=== PATIENT | male | born 1950 | race Caucasian/White ===

== ENCOUNTER 2020-02-19 08:47 | Outpatient (CLI) | payer MEDICARE, SELFPAY ==
[2020-02-19 09:17] LABS: Basophils Absolute Auto 0.1 K/mm3 (0.0-0.1); Basophils Percent Auto 1.5 % (0.2-1.2); Eosinophils Absolute Auto 0.4 K/mm3 (0-0.3); Eosinophils Percent Auto 5.8 % (0-4.4); Hematocrit 41.8 % (42.0-52.0); Hemoglobin 13.9 g/dL (14.0-18.0); Immature Granulocyte Absolute 0.02 K/mm3 (0.00-0.031); Immature Granulocyte Percent A 0.3 % (0-0.5); Lymphocytes Absolute Auto 1.98 K/mm3 (0.9-3.2); Mean Corpuscular HGB Conc 33.3 g/dl (32-36); Mean Corpuscular Hemoglobin 29.8 pg (26-34); Mean Corpuscular Volume 89.7 fl (80-100); Mean Platelet Volume 10.8 fl (7.4-10.4); Monocytes Absolute Auto 0.6 K/mm3 (0.1-0.6); Monocytes Percent Auto 8.9 % (2.6-8.5); Neutrophils Absolute Auto 3.2 K/mm3 (1.3-6.7); Neutrophils Percent Auto 51.5 % (45.5-73.1); Platelet Count Result 254 k/mm3 (150-375); Red Blood Count 4.66 M/mm3 (4.6-6.20); Red Cell Distribution Width 12.2 % (11.5-14.5); White Blood Count 6.2 K/mm3 (4.5-10.0)
[2020-02-19 09:33] LABS: Blood Urea Nitrogen 19 mg/dL (9-20); Calcium 9.5 mg/dL (8.4-10.2); Carbon Dioxide 28 mmol/L (22-30); Chloride 102 mmol/L (98-107); Estimated Glomerular Filt Rate > 60; Glucose 228 mg/dL (75-110); Potassium 4.7 mmol/L (3.4-5.0); Sodium 137 mmol/L (137-145)
== END 2020-02-19 08:48 | disposition home or self-care (01) ==
LOC: ANHLAB 08:57
PROVIDERS: PCP Family Medicine; Visit Provider Family Medicine
DX: I10 Essential (primary) hypertension (principal); D64.9 Anemia, unspecified
CPT/HCPCS: 36415; 80048; 84443; 85025

== ENCOUNTER 2020-06-18 18:38 | Inpatient (IN) | payer MEDICARE, SELFPAY ==
--- NOTE | ~2020-06-18 | US_ITS ---
EXAMINATION: US carotid duplex BI DATE: 06/19/2020 12:54 INDICATION: Syncope. TECHNIQUE: Grayscale, color Doppler, and pulsed Doppler images of the cervical carotid arteries were obtained. The degree of vessel stenosis is placed in one of the following categories: normal, <50%, 5 0-69%, >=70% but less than near-occlusion, near-occlusion, or total occlusion. Note that percent sten osis relative to normal distal artery lumen diameter is indirectly measured from velocity measurement s as described by Kenny, et al. Radiology 2003; 229:340-346. COMPARISON: Ultrasound 05/21/2019 FINDINGS: RIGHT: The right common carotid artery (CCA) peak systolic velocity (PSV) is 109 cm/s. The right internal ca rotid artery (ICA) PSV is 101 cm/s. The right ICA end-diastolic velocity (EDV) is 16 cm/s. The right ICA/CCA PSV ratio is 0.9. Grayscale and color Doppler images yield an estimate of <50% diameter reduc tion from plaque in the ICA. There is antegrade flow in the right vertebral artery. LEFT: The left CCA PSV is 114 cm/s. The left ICA PSV is 110 cm/s. The left ICA EDV is 15 cm/s. The left ICA /CCA PSV ratio is 0.9. Grayscale and color Doppler images yield an estimate of <50% diameter reductio n from plaque in the ICA. There is antegrade flow in the left vertebral artery. IMPRESSION: 1. <50% stenosis in the right internal carotid artery. 2. <50% stenosis in the left internal carotid artery. Reviewed, dictated and finalized at location A.
--- NOTE | ~2020-06-18 | CT_ITS ---
EXAMINATION: CT brain wo con EXAM DATE: 06/18/2020 19:45 INDICATION: Syncope, struck head, head injury. Left parietal head pain. TECHNIQUE: Spiral CT of the head was performed without contrast. Axial, coronal and sagittal images were reviewed. The dose-length product (DLP) for this examination was 605.33 mGy-cm. The exposure w as tailored according to patient size, and iterative reconstruction (ASIR) was used as additional dos e reduction technique. Comparison is made to prior examination from 06/06/2007. FINDINGS: There is no acute intraparenchymal hemorrhage. No evidence of intraparenchymal brain mass lesion. No evidence of acute infarction. There is no mass effect or midline shift. The ventricles are normal in size. There are no extra-axial collections. There are no acute calvarial fractures. T he orbits are unremarkable. There is small left posterior scalp contusion. Moderate bilateral ethmoi d mucoperiosteal thickening. Completely opacified right sphenoid sinus probably chronic given the sin us wall thickening. The mastoid air cells demonstrate trace left mastoid effusion. IMPRESSION: 1. No acute intracranial findings. 2. Small posterior scalp contusion. Reviewed, dictated and finalized at location A.
--- NOTE | ~2020-06-18 | MR_ITS ---
EXAMINATION: MR brain/brain stem wo/w con DATE: 06/19/2020 12:39 INDICATION: Dizziness. Ataxia. Syncope. TECHNIQUE: Magnetic resonance imaging (MRI) of the brain and brainstem was performed without and with 20 mL MultiHance intravenous contrast. Sequences included sagittal and axial T1-weighted FSE, axial diffusion-weighted FS EPI, axial T2*-weighted GRE, axial T2-weighted FLAIR Propeller, and axial T2-we ighted Propeller. Postcontrast sequences included axial and coronal T1-weighted FSE. Apparent diffusi on coefficient (ADC) maps were created. COMPARISON: Head CT 06/18/2020, 06/06/2007 FINDINGS: There are scattered areas of nonspecific increased T2-weighted signal intensity in the cere bral white matter, which is within normal limits for the patient's age. There is no intracranial hemo rrhage, acute infarction, or abnormal intracranial mass lesion. The ventricles are normal in size. Th ere is mucosal thickening in the paranasal sinuses. There is complete opacification of right sphenoid sinus. There is a small left mastoid effusion. The orbits are normal. IMPRESSION: 1. Normal aging brain. 2. Chronic sinusitis. Reviewed, dictated and finalized at location A.
[2020-06-18 18:45] VITALS: BP 174/75; PULSE 54; RESP 18; TEMP 37.4; O2SAT 99
--- NOTE | 2020-06-18 18:51 | ECG_ITS ---
Measurements Intervals [place] Rate: 51 P: -22 VT: 169 QRS: -22 QRSD: 89 T: -19 QT: 381 QTc: 351 Interpretive Statements SINUS BRADYCARDIA BORDERLINE ST-T WAVE ABNORMALITY- INFERIOR LEADS BASELINE ARTIFACT- I, III, AVL BORDERLINE ECG Electronically Signed On 06-19-2020 7:34:39 CDT by Garo Valdivia D.O.
[2020-06-18 19:05] LABS: Basophils Absolute Auto 0.1 K/mm3 (0.0-0.1); Basophils Percent Auto 1.1 % (0.2-1.2); Eosinophils Absolute Auto 0.5 K/mm3 (0-0.3); Eosinophils Percent Auto 4.5 % (0-4.4); Hematocrit 41.6 % (42.0-52.0); Hemoglobin 13.8 g/dL (14.0-18.0); Immature Granulocyte Absolute 0.09 K/mm3 (0.00-0.031); Immature Granulocyte Percent A 0.8 % (0-0.5); Lymphocytes Absolute Auto 2.87 K/mm3 (0.9-3.2); Mean Corpuscular HGB Conc 33.2 g/dl (32-36); Mean Corpuscular Hemoglobin 29.6 pg (26-34); Mean Corpuscular Volume 89.3 fl (80-100); Mean Platelet Volume 11.4 fl (7.4-10.4); Monocytes Absolute Auto 1.2 K/mm3 (0.1-0.6); Monocytes Percent Auto 10.9 % (2.6-8.5); Neutrophils Absolute Auto 5.9 K/mm3 (1.3-6.7); Neutrophils Percent Auto 55.7 % (45.5-73.1); Platelet Count Result 264 k/mm3 (150-375); Red Blood Count 4.66 M/mm3 (4.6-6.20); Red Cell Distribution Width 12.6 % (11.5-14.5); White Blood Count 10.6 K/mm3 (4.5-10.0)
[2020-06-18 19:16] LABS: Anion Gap 9 mmol/L (8-16); Blood Urea Nitrogen 22 mg/dL (9-20); Calcium 9.3 mg/dL (8.4-10.2); Carbon Dioxide 25 mmol/L (22-30); Chloride 105 mmol/L (98-107); Estimated Glomerular Filt Rate 55; Glucose 133 mg/dL (75-110); Potassium 4.5 mmol/L (3.4-5.0); Sodium 139 mmol/L (137-145)
[2020-06-18 20:33] VITALS: BP 175/83; PULSE 68
[2020-06-18 20:39] VITALS: BP 189/89; BP 198/67; PULSE 61; PULSE 63
--- NOTE | 2020-06-18 21:08 | ED.SYNCOPE ---
HPI - Syncope General Chief Complaint: Syncope Stated Complaint: syncopal episode, fall Time Seen by Provider: 06/18/20 20:31 History of Present Illness HPI narrative: Patient is a 70-year-old male who presents ER after syncopal episode 3 hours prior to arrival. Patient was in the kitchen normal suddenly he collapsed. Patient has dementia and is history is because I limited. Does not report any chest pain or palpitations. Reports he was eating some food of a pop when he got dizzy and this occurred. heard him hit the ground he did not respond to her. She believes she is unresponsive for about 1 minute. Since then he has had some instability when walking due to dizziness. No slurred speech or weakness in arm or leg. Has not had similar symptoms previously. Patient reports a headache due to striking his head on the ground. Related Data Allergies Allergy/AdvReac Type Severity Reaction Status Date / Time No Known Allergies Allergy Verified 06/14/20 13:27 Review of Systems Review of Systems: ROS unobtainable: Yes unobtainable due to mental status Neurologic: Reports dizziness, Reports syncope, Reports headache(s) and Denies numbness PMFSH Past Medical History Medical History (Updated 06/18/20 @ 23:26 by Etienne Hernandez MD) Anemia, unspecified Diabetes Essential (primary) hypertension Kidney function abnormal REY (obstructive sleep apnea) Surgical History Surgical History (Updated 06/18/20 @ 21:12 by Etienne Hernandez MD) H/O colonoscopy Social History Social History Smoking status: Never smoker Alcohol intake: current Exam Narrative: Exam Narrative: GENERAL: Well-appearing, well-nourished, and in no acute distress. HEAD: Normocephalic, atraumatic. EYES: PERRLA and EOMI. CHEST: Clear to auscultation. No respiratory distress. HEART: Regular rate and rhythm. Normal peripheral pulses. ABDOMEN: Soft, nontender, nondistended. EXTREMITIES: Normal range of motion. No edema. SKIN: Warm, dry, no rash. NEURO: Cranial nerves II through XII intact. No upper or lower extremity drift. Patient has ataxic gait when walking and nearly falls over couple times. Alert and oriented x2. PSYCH: Normal mood and affect. Course Course Emergency Course: Admit to hospitalist service. Concern for possible posterior stroke given ataxia. Will need MRI and further work-up. Vital Signs Vital signs: Vital Signs Temperature 99.4 F 06/18/20 18:45 Pulse Rate 54 L 06/18/20 18:45 Respiratory Rate 18 06/18/20 18:45 Blood Pressure 174/75 H 06/18/20 18:45 Pulse Oximetry 99 06/18/20 18:45 Temperature 99.4 F 06/18/20 18:45 Pulse Rate 47 L 06/18/20 23:09 Respiratory Rate 18 06/18/20 23:09 Blood Pressure 152/74 H 06/18/20 23:09 Pulse Oximetry 97 06/18/20 23:09 MDM - Syncope Lab Data Result diagrams: 06/18/20 18:53 06/18/20 18:53 Labs: Lab Results 06/18/20 06/18/20 Range/Units 18:53 18:53 WBC 10.6 H (4.5-10.0) K/mm3 RBC 4.66 (4.6-6.20) M/mm3 Hgb 13.8 L (14.0-18.0) g/dL Hct 41.6 L (42.0-52.0) % MCV 89.3 (80-100) fl MCH 29.6 (26-34) pg MCHC 33.2 (32-36) g/dl RDW 12.6 (11.5-14.5) % Plt Count 264 (150-375) k/mm3 MPV 11.4 H (7.4-10.4) fl Immature Gran % (Auto) 0.8 H (0-0.5) % Neut % (Auto) 55.7 (45.5-73.1) % Lymph % (Auto) 27.0 (18.3-44.2) % [place] % (Auto) 10.9 H (2.6-8.5) % Eos % (Auto) 4.5 H (0-4.4) % Baso % (Auto) 1.1 (0.2-1.2) % Lymph # (Auto) 2.87 (0.9-3.2) K/mm3 [place] # (Auto) 1.2 H (0.1-0.6) K/mm3 Eos # (Auto) 0.5 H (0-0.3) K/mm3 Baso # (Auto) 0.1 (0.0-0.1) K/mm3 Abs Immat Gran (auto) 0.09 H (0.00-0.031) K/mm3 Absolute Neuts (auto) 5.9 (1.3-6.7) K/mm3 Absolute Nucleated RBC 0.0 (0.0-0.012) K/mm3 Nucleated RBC % 0.0 (0.0-0.2) % Sodium 139 (137-145) mmol/L Potassium 4.5 (3.4-5.0) mmol/L Chlor
[2020-06-18 21:35] VITALS: BP 168/62; PULSE 50; RESP 18; O2SAT 17
[2020-06-18 23:09] VITALS: BP 152/74; PULSE 47; RESP 18; O2SAT 97
[2020-06-18 23:56] VITALS: BP 156/79; PULSE 51; RESP 16; O2SAT 96
[2020-06-19] VITALS (13 sets, daily range): BP systolic 133–164; BP diastolic 55–79; PULSE 38–66; RESP 15–17; TEMP 36.6–36.8; O2SAT 95–100; BMI 29.6
--- NOTE | 2020-06-19 00:08 | ADMGEN ---
This patient, Alejandro Love, was admitted to Medical Room 344-01. Patient/family oriented to hospital policies and general routines including ID bracelet, bed and alarms, visiting hours, pain management, procedures, bathroom and other care routines, personal items, smoking policy, room service/diet, and visiting hours. Valuables list has been completed. Information on how to activate the Rapid Response Team has been discussed. Patient/Family are encouraged to report perceived risks to care and to ask questions if they do not understand what they are told or what they should do.
--- NOTE | 2020-06-19 00:34 | PM.IMHP ---
H&P: HPI History of Present Illness Date/Time: 06/19/20 00:34 Chief complaint: syncope, dizziness, ataxia Narrative: This is a pleasant 70 year old Diabetic male with known history of HTN and anemia who presented to the hospital after suffering a syncopal episode in his kitchen yesterday. Apparently the patient was cooking and remembers standing next to the stove and tasting some food he was cooking when suddenly he found himself on the floor. He did strike the back of his head and his right elbow when he fell. The patient was poorly responsive for a few minutes before his could get him to wake up and become responsive. He remembers feeling very dizzy and continues to have dizziness. He denies any chest pain or shortness of breath prior to passing out. He denies any other focal symptoms and his did not observe any seizure like activity. In the ER tonight the patient was evaluated and found to have a wide shuffling gait which is not normal for him. His reported to ER staff that the patient appeared very shaky. He denies any fevers, chills, cough, shortness of breath, abdominal pain, palpitations, dysuria, hematuria, nausea, vomiting, diarrhea or rectal bleeding. We have been asked to admit the patient for further care and r/o possible CVA. Review of Systems Review of Systems: All systems reviewed & are unremarkable except as noted in HPI and below PMFSH Past Medical History Medical History Anemia, unspecified Diabetes Essential (primary) hypertension Kidney function abnormal REY (obstructive sleep apnea) Surgical History Surgical History H/O colonoscopy Family History Family History Sibling Hypertension Diabetes mellitus Social History Social History Smoking status: Never smoker Additional smoking assessment comments: pt very poor historian Alcohol intake: never Substance use: never Substance use type: does not use Gender identity (if verbalized by the patient): Male Spiritual care concerns: No Meds Home Medications and Allergies Home Medications Medication Instructions Recorded Confirmed Type amlodipine 10 mg tablet 10 mg PO DAILY #90 tablet 03/17/20 06/19/20 Rx donepezil 10 mg tablet 10 mg PO ONCE #30 tablet 04/08/20 06/19/20 Rx ramipril 10 mg capsule 20 mg PO DAILY #60 cap 04/16/20 06/19/20 Rx omeprazole 40 mg capsule,delayed 40 mg PO DAILY #90 cap 05/26/20 06/19/20 Rx release nebivolol 10 mg tablet 10 mg PO DAILY #30 tablet 06/14/20 06/19/20 Rx metformin 500 mg PO QPM 06/19/20 06/19/20 History Allergies Allergy/AdvReac Type Severity Reaction Status Date / Time No Known Allergies Allergy Verified 06/14/20 13:27 Vital Signs Vital Signs - 24 hr 06/18/20 18:45 06/18/20 20:33 06/18/20 20:39 Temperature 37.4 C Pulse Rate 54 L 68 61 Respiratory Rate 18 Blood Pressure 174/75 H 175/83 H 198/67 H Pulse Oximetry 99 06/18/20 21:35 06/18/20 23:09 06/18/20 23:56 Temperature Pulse Rate 50 L 47 L 51 L Respiratory Rate 18 18 16 Blood Pressure 168/62 H 152/74 H 156/79 H Pulse Oximetry 17 L 97 96 06/19/20 00:30 Temperature 36.6 C Pulse Rate 48 L Respiratory Rate 16 Blood Pressure 133/79 Pulse Oximetry 97 Exam Const: General: cooperative, healthy appearing, no acute distress, alert and awake Nutritional Appearance: well nourished Orientation/consciousness: patient oriented x3 HENMT: General nose exam: Normal external nose present Face and sinus: normal facial exam Mouth: Yes Normal oral and palatal mucosa present and Yes oropharynx normal Eyes: Pupils: Equal, round and reactive pupils present EOM: EOMs intact bilaterally Neck: Neck: supple and no JVD Thyroid: thyroid normal Lymphatic: lymphadenopathy not noted Resp: Ef
[2020-06-19 07:58] LABS: Glucose Point of Care 136 (65-105)
[2020-06-19] MEDS: amLODIPine BESYLATE 5 MG TABLET 10 MG PO (09:00)
[2020-06-19] MEDS: PANTOPRAZOLE 40 MG TABLET PO ×2 (09:01→20:55)
[2020-06-19] MEDS: ramipriL 5 MG CAPSULE 20 MG PO (09:02)
[2020-06-19] MEDS: ACETAMINOPHEN 325 MG TABLET 650 MG PO (10:51)
[2020-06-19 13:15] LABS: Glucose Point of Care 131 (65-105)
--- NOTE | 2020-06-19 15:11 | PM.IMPN ---
Progress Note: A&P Assessment and Plan (1) Syncope: Qualifiers: Syncope type: unspecified Qualified Code(s): R55 - Syncope and collapse Code(s): R55 - Syncope and collapse Status: Acute Assessment and Plan: Patient presents after 1 syncopal episode at home. Still some intermittent dizziness today. May be related to sinus bradycardia. He recently saw Dr. Kidd in the office 06/14 at which time his Bystolic was doubled 5 mg daily to [address] brain, MRI brain showed no acute findings. Carotid Dopplers are within normal limits. Continue to hold Bystolic and monitor with cardiac telemetry. Continue neuro checks, check TSH in AM. (2) Ataxia: Code(s): R27.0 - Ataxia, unspecified Status: Acute Assessment and Plan: MRI brain has ruled out acute CVA. Continue PT/OT. Plan for discharge home with home health. (3) Essential (primary) hypertension: Code(s): I10 - Essential (primary) hypertension Status: Chronic Assessment and Plan: Patient remains on his home regimen including Norvasc, ASIF-inhibitor. Bystolic is held due to sinus bradycardia. IV hydralazine as needed. Monitor BP and adjust treatment as needed. (4) Diabetes: Qualifiers: Diabetes mellitus type: type 2 Diabetes mellitus residential insulin use: without termite control technician use Diabetes mellitus complication status: without complication Qualified Code(s): E11.9 - Type 2 diabetes mellitus without complications Code(s): E11.9 - Type 2 diabetes mellitus without complications Status: Chronic Assessment and Plan: Continue home metformin. Last A1c 8.6 in February, recheck in AM. Continue to monitor with Accu-Cheks and cover with SSI. Blood sugars appropriate today. (5) Dementia: Qualifiers: Dementia type: unspecified type Dementia behavioral disturbance: without behavioral disturbance Qualified Code(s): F03.90 - Unspecified dementia without behavioral disturbance Code(s): F03.90 - Unspecified dementia without behavioral disturbance Status: Chronic Assessment and Plan: Stable. Continue home Aricept. Subjective Date/time seen: 06/19/20 1445 Interval history: Mr. Love is a very pleasant 70yo M admitted for evaluation of dizziness and syncope. He passed out at home while standing in the kitchen yesterday, has been having some intermittent dizziness still today but overall feeling a bit better. He denies any headache, vision changes or speech changes. He denies upper or lower extremity weakness. He denies chest pain, shortness of breath, or cough. He has tolerated oral intake without nausea or vomiting. He is a bit hard of hearing and admits he does have dementia but answers all of my questions appropriately. Per patient's request, attempted to call his , Cynthia, for updates but not able to reach her this evening. Review of Systems Review of Systems: Narrative: Twelve systems were reviewed with pertinent positives and negatives as per HPI. Exam Narrative: Exam Narrative: General: Male resting sitting up in bed in no acute distress. HEENT: Normocephalic, EOMI, oral mucosa moist. Cardiovascular: Rate is bradycardic. Rhythm is regular. Systolic murmur heard over left sternal border. Telemetry review shows sinus bradycardia, rates as low as 38 overnight. Current HR at time of my encounter is ranging from 49 to 62 and he is asymptomatic present. Respiratory: Lungs clear to auscultation in all garcia. Non-labored breathing. Tolerating room air. Abdomen: Soft, non-tender, non-distended, bowel sounds present. Extremities: Peripheral pulses intact. No edema. Neuro: Alert and oriented. No focal neurological deficits are
[2020-06-19 16:37] LABS: Glucose Point of Care 141 (65-105)
[2020-06-19] MEDS: metFORMIN HCL XR 500 MG TAB.SR.24H PO (17:55)
[2020-06-19 18:26] LABS: Add Urine Microscopic? YES; Appearance Urine Clear (Clear); Bilirubin Urine Negative (Negative); Blood Urine Negative (Negative); Color Urine Yellow (Yellow); Glucose Urine UA Negative (Negative); Ketones Urine Negative (Negative); Leukocyte Esterase Ur Negative LEU/UL (Negative); Mucus Urine Rare /lpf; Nitrate Urine Negative (Negative); Protein Urine 1+ mg/dL (Negative); RBC Urine 0-2 /hpf (0-2); Specific Grav Ur 1.025 (1.001-1.035); Squamous Epithelial Cell Urine Rare /hpf (Few); WBC Urine 0-3 /hpf
[2020-06-19] MEDS: DONEPEZIL HCL 10 MG TABLET PO (20:55)
[2020-06-19 22:24] LABS: Glucose Point of Care 149 (65-105)
[2020-06-20] VITALS (11 sets, daily range): BP systolic 143–166; BP diastolic 62–75; PULSE 39–70; RESP 14–19; TEMP 36.6–36.7; O2SAT 97–100
[2020-06-20 06:29] LABS: Basophils Absolute Auto 0.1 K/mm3 (0.0-0.1); Basophils Percent Auto 0.9 % (0.2-1.2); Eosinophils Absolute Auto 0.5 K/mm3 (0-0.3); Eosinophils Percent Auto 6.5 % (0-4.4); Hematocrit 39.9 % (42.0-52.0); Hemoglobin 13.5 g/dL (14.0-18.0); Immature Granulocyte Absolute 0.03 K/mm3 (0.00-0.031); Immature Granulocyte Percent A 0.4 % (0-0.5); Lymphocytes Percent Auto 23.2 % (18.3-44.2); Mean Corpuscular HGB Conc 33.8 g/dl (32-36); Mean Corpuscular Hemoglobin 30.1 pg (26-34); Mean Corpuscular Volume 89.1 fl (80-100); Mean Platelet Volume 11.1 fl (7.4-10.4); Monocytes Absolute Auto 0.9 K/mm3 (0.1-0.6); Monocytes Percent Auto 10.5 % (2.6-8.5); Neutrophils Absolute Auto 4.8 K/mm3 (1.3-6.7); Neutrophils Percent Auto 58.5 % (45.5-73.1); Platelet Count Result 242 k/mm3 (150-375); Red Blood Count 4.48 M/mm3 (4.6-6.20); Red Cell Distribution Width 12.6 % (11.5-14.5); White Blood Count 8.2 K/mm3 (4.5-10.0)
[2020-06-20 07:56] LABS: Glucose Point of Care 152 (65-105)
[2020-06-20] MEDS: ramipriL 5 MG CAPSULE 20 MG PO (08:52)
[2020-06-20] MEDS: PANTOPRAZOLE 40 MG TABLET PO ×2 (08:53→20:46)
[2020-06-20] MEDS: amLODIPine BESYLATE 5 MG TABLET 10 MG PO (08:53)
--- NOTE | 2020-06-20 11:22 | PM.IMPN ---
Progress Note: A&P Assessment and Plan (1) Syncope: Qualifiers: Syncope type: unspecified Qualified Code(s): R55 - Syncope and collapse Code(s): R55 - Syncope and collapse Status: Acute Assessment and Plan: Patient presents after 1 syncopal episode at home. No dizziness today. May be related to sinus bradycardia. He recently saw Dr. Kidd in the office 06/14 at which time his Bystolic was doubled 5 mg daily to [address] brain, MRI brain showed no acute findings. Carotid Dopplers are within normal limits. Continue to hold Bystolic and monitor with cardiac telemetry. 5- beat run of nonsustained VT on telemetry early this morning. We will keep him overnight to check an echocardiogram in AM. He may benefit from evaluation with holter monitor. (2) Ataxia: Code(s): R27.0 - Ataxia, unspecified Status: Acute Assessment and Plan: MRI brain has ruled out acute CVA. Continue PT/OT. Plan for discharge home with home health possibly tomorrow. (3) Essential (primary) hypertension: Code(s): I10 - Essential (primary) hypertension Status: Chronic Assessment and Plan: Patient remains on his home regimen including Norvasc, ASIF-inhibitor. Bystolic is held due to sinus bradycardia. IV hydralazine as needed. Monitor BP and adjust treatment as needed. (4) Diabetes: Qualifiers: Diabetes mellitus type: type 2 Diabetes mellitus moth exterminator insulin use: without moth exterminator use Diabetes mellitus complication status: without complication Qualified Code(s): E11.9 - Type 2 diabetes mellitus without complications Code(s): E11.9 - Type 2 diabetes mellitus without complications Status: Chronic Assessment and Plan: Continue home metformin. Last A1c 8.6 in February, recheck in AM. Continue to monitor with Accu-Cheks and cover with SSI. Blood sugars appropriate today. (5) Dementia: Qualifiers: Dementia type: unspecified type Dementia behavioral disturbance: without behavioral disturbance Qualified Code(s): F03.90 - Unspecified dementia without behavioral disturbance Code(s): F03.90 - Unspecified dementia without behavioral disturbance Status: Chronic Assessment and Plan: Stable. Continue home Aricept. Subjective Date/time seen: 06/20/20 0915 Interval history: Mr. Love is a very pleasant 70yo M admitted for evaluation of dizziness and syncope. He passed out at home while standing in the kitchen yesterday, had some intermittent dizziness still yesterday but none so far today, even with getting up to walk and use the restroom. He denies chest pain, palpitations, shortness of breath, or cough. He has tolerated oral intake without nausea or vomiting. He is a bit hard of hearing and admits he does have dementia but answers all of my questions appropriately. 5 beat run of nonsustained VT noted on telemetry this morning. RN notified me of another 3-beat run later this morning with which he is completely asymptomatic, sitting in the chair reading. Review of Systems Review of Systems: Narrative: Twelve systems were reviewed with pertinent positives and negatives as per HPI. Exam Narrative: Exam Narrative: General: Male resting sitting up in bed in no acute distress. HEENT: Normocephalic, EOMI, oral mucosa moist. Cardiovascular: Rate is bradycardic. Rhythm is regular. Systolic murmur heard over left sternal border. Telemetry review shows sinus bradycardia, rates as low as 39 overnight. Current HR at time of my encounter is 58 and he is asymptomatic at present. 5 beat run of nonsustained VT early this morning. Respiratory: Lungs clear to auscultation in all garcia. Non-labored breathing. Tolerat
[2020-06-20 12:06] LABS: Glucose Point of Care 253 (65-105)
[2020-06-20] MEDS: INSULIN ASPART (*BKC) 100 UNITS/ML SUB-Q (12:10)
[2020-06-20 17:10] LABS: Glucose Point of Care 130 (65-105)
[2020-06-20] MEDS: metFORMIN HCL XR 500 MG TAB.SR.24H PO (17:12)
[2020-06-20 20:01] LABS: Glucose Point of Care 185 (65-105)
[2020-06-20] MEDS: DONEPEZIL HCL 10 MG TABLET PO (20:46)
[2020-06-21] VITALS (8 sets, daily range): BP systolic 169–171; BP diastolic 61–71; PULSE 43–62; RESP 12–18; TEMP 36.3–36.8; O2SAT 95–100
--- NOTE | 2020-06-21 | ECHO_ITS ---
Patient Info Name: Alejandro Love Age: 70 years : 1950 Gender: Male Ht: 75 in Wt: 236 lbs BSA: 2.40 m2 HR: 68 bpm BP: 169 / 71 mmHg Technical Quality: Good Exam Date: 06/21/2020 9:46 AM Exam Location: [facility] Patient Status: Inpatient Admit Date: 06/19/2020 Staff Ordering Physician: Caridad Ortiz PA-C Wildlife Forensic Geneticist: Heladio Henley, RASHAAD, RT Attending Provider: Alejandro Gamino MD Exam Type: CA echo dop bubble study w con Study Info Indications R55 - Syncope and collapse Complete two-dimensional, color flow and Doppler transthoracic echocardiogram is performed with agitated saline. Summary 1. Left ventricular chamber dimension is mildly enlarged. 2. Left ventricular systolic function is normal, estimated at 60-65%. 3. There is moderately increased left ventricular wall thickness. 4. The left ventricular diastolic function is abnormal. 5. E/e' 14 is mildly elevated. 6. Global longitudinal strain is normal at -20.6%. 7. There is moderate aortic valve sclerosis. 8. The mitral valve has moderately calcified annulus. 9. There is trace tricuspid valve regurgitation. 10. There is trace pulmonic regurgitation. 11. Small atheroma in anterior aortic root. 12. Dilated inferior vena cava with >50% collapse upon inspiration consistent with elevated right atrial pressure, 10 mmHg. Left Ventricle E/e' 14 is mildly elevated. Global longitudinal strain is normal at -20.6%. Left ventricular chamber dimension is mildly enlarged. Left ventricular systolic function is normal, estimated at 60-65%. There is moderately increased left ventricular wall thickness. The left ventricular diastolic function is abnormal. Right Ventricle Right ventricular chamber dimension is normal. Right ventricular systolic function is normal. Left Atria Left atrial chamber dimension is normal. Right Atria Right atrial chamber dimension is normal. Aortic Valve The aortic valve is trileaflet. There is moderate aortic valve sclerosis. There is no aortic valve stenosis. There is no aortic valve regurgitation. Pulmonic Valve There is trace pulmonic regurgitation. Mitral Valve The mitral valve has moderately calcified annulus. There is no mitral valve stenosis. There is no mitral valve regurgitation. Tricuspid Valve There is trace tricuspid valve regurgitation. RVSP is not calculated due to an inadequate TR jet. Pericardium/Pleural There is no pericardial effusion. Inferior Vena Cava Dilated inferior vena cava with >50% collapse upon inspiration consistent with elevated right atrial pressure, 10 mmHg. Aorta Small atheroma in anterior aortic root. The aortic root size at the sinus of Valsalva is normal. Left Ventricular Outflow Tract Name Value Normal LVOT 2D LVOT Diameter 2.2 cm LVOT Doppler LVOT Peak Gradient 10 mmHg LVOT Mean Gradient 5 mmHg LVOT VTI 36 cm LVOT VTI/AV VTI Ratio 0.6 LVOT Stroke Volume 139 ml LVOT CO
[2020-06-21] MEDS: ACETAMINOPHEN 325 MG TABLET 650 MG PO (05:39)
[2020-06-21 06:26] LABS: Anion Gap 5 mmol/L (8-16); Blood Urea Nitrogen 21 mg/dL (9-20); Carbon Dioxide 28 mmol/L (22-30); Chloride 103 mmol/L (98-107); Estimated CRCL calculation 73 ml/min; Estimated Glomerular Filt Rate > 60; Glucose 158 mg/dL (75-110); Magnesium 2.2 mg/dL (1.6-2.3); Potassium 4.5 mmol/L (3.4-5.0); Sodium 136 mmol/L (137-145)
[2020-06-21 07:40] LABS: Glucose Point of Care 148 (65-105)
[2020-06-21] MEDS: PANTOPRAZOLE 40 MG TABLET PO (09:06)
[2020-06-21] MEDS: ramipriL 5 MG CAPSULE 20 MG PO (09:06)
[2020-06-21] MEDS: amLODIPine BESYLATE 5 MG TABLET 10 MG PO (09:06)
[2020-06-21 11:41] LABS: Glucose Point of Care 157 (65-105)
--- NOTE | 2020-06-21 16:10 | PM.DS ---
DS: Admitting Diagnosis Admitting Diagnosis Admitting Diagnosis: syncope, dizziness, ataxia DS: Discharge Diagnosis Discharge Diagnosis (1) Syncope: Qualifiers: Syncope type: unspecified Qualified Code(s): R55 - Syncope and collapse Code(s): R55 - Syncope and collapse Status: Acute Assessment and Plan: Date of Service 06/21/20: Mr. Love is a very pleasant 70 yo M with hypertension, non-insulin dependent type 2 diabetes mellitus, and dementia who presented to the ED for evaluation after a syncopal episode/fall at home. He described he was standing in the kitchen making food when he suddenly passed out and fell to the floor. Hit the back of his head when he fell, no open laceration or bleeding. CT and MRI brain were normal. Carotid dopplers within normal limits. Denies any chest pain or shortness of breath. He is noted to have sinus bradycardia much of the admission. He was monitored with continuous cardiac telemetry, bradycardic down to 38 most of the night while sleeping. Bradycardic mostly 40s to 60s while awake. Isolated event of a 5-beat run of V-tach during which he was awake and completely asymptomatic. His home bystolic was held. He recently saw Dr Kidd in the office last week and Bystolic was doubled for blood pressure control. Patient continued with some dizziness with standing first day of admission, but was feeling much improved without any dizziness prior to discharge. Blood pressures not quite at goal after taking away the bystolic but he is feeling much improved and was educated on the importance of following up with Dr Kidd next week. Echocardiogram was performed and detailed below. He was hemodynamically stable for discharge 06/21/20 with instructions to not take his Bystolic and to see Dr Kidd within a week. Could consider outpatient cardiology referral or evaluation with Holter monitor if bradycardia persists despite being off beta blockade. (2) Ataxia: Code(s): R27.0 - Ataxia, unspecified Status: Resolved Assessment and Plan: Resolved. MRI brain has ruled out acute CVA. Continue PT/OT. Plan for discharge home with home health. (3) Essential (primary) hypertension: Code(s): I10 - Essential (primary) hypertension Status: Chronic Assessment and Plan: Patient remains on his home regimen including Norvasc, ASIF-inhibitor. Bystolic is held due to sinus bradycardia. (4) Diabetes: Qualifiers: Diabetes mellitus type: type 2 Diabetes mellitus senior care insulin use: without exterminator termite use Diabetes mellitus complication status: without complication Qualified Code(s): E11.9 - Type 2 diabetes mellitus without complications Code(s): E11.9 - Type 2 diabetes mellitus without complications Status: Chronic Assessment and Plan: Continue home metformin. Hgb A1c 8.0. (5) Dementia: Qualifiers: Dementia type: unspecified type Dementia behavioral disturbance: without behavioral disturbance Qualified Code(s): F03.90 - Unspecified dementia without behavioral disturbance Code(s): F03.90 - Unspecified dementia without behavioral disturbance Status: Chronic Assessment and Plan: Stable. Continue home Aricept. DS: Summary Time Spent with Patient Time attestation: Total time spent providing and/or coordinating discharge services: 40 minutes Exam Narrative: Exam Narrative: General: Male resting sitting up in bed in no acute distress. HEENT: Normocephalic, EOMI, oral mucosa moist. Cardiovascular: Rate is bradycardic. Rhythm is regular. Systolic murmur heard over left sternal border. Telemetry review shows sinus bradycardia, rates as low as 39 overnight. Current HR at time of
== END 2020-06-21 16:15 | disposition home health service (06) | DRG 310 ==
LOC: ANHED 21:11 → ANH3MED 23:19
PROVIDERS: Physician Assistant; Admitting Provider Family Medicine; Emergency Provider Emergency Medicine; PCP Family Medicine; Visit Provider Internal Medicine
DX: R00.1 Bradycardia, unspecified (principal); R55 Syncope and collapse; I47.2 Ventricular tachycardia; R27.0 Ataxia, unspecified; D64.9 Anemia, unspecified; E11.9 Type 2 diabetes mellitus without complications; F03.90 Unspecified dementia, unspecified severity, without behavioral disturbance, psychotic disturbance, mood disturbance, and anxiety
CPT/HCPCS: 36415; 70450; 70553; 80048; 81001; 83036; 83735; 84443; 85025; 93005; 93880; 96375; 97110; 97116; 97161; 97165; 99285; A9270; A9577; C8929; G0378; J1815

== ENCOUNTER 2020-08-18 11:45 | Outpatient (CLI) | payer MEDICARE, SELFPAY ==
[2020-08-18 12:26] LABS: Basophils Absolute Auto 0.1 K/mm3 (0.0-0.1); Basophils Percent Auto 1.2 % (0.2-1.2); Eosinophils Absolute Auto 0.5 K/mm3 (0-0.3); Eosinophils Percent Auto 5.6 % (0-4.4); Hematocrit 43.2 % (42.0-52.0); Hemoglobin 14.5 g/dL (14.0-18.0); Immature Granulocyte Absolute 0.03 K/mm3 (0.00-0.031); Immature Granulocyte Percent A 0.4 % (0-0.5); Lymphocytes Absolute Auto 2.08 K/mm3 (0.9-3.2); Mean Corpuscular HGB Conc 33.6 g/dl (32-36); Mean Corpuscular Hemoglobin 29.9 pg (26-34); Mean Corpuscular Volume 89.1 fl (80-100); Mean Platelet Volume 10.6 fl (7.4-10.4); Monocytes Absolute Auto 0.9 K/mm3 (0.1-0.6); Monocytes Percent Auto 11.6 % (2.6-8.5); Neutrophils Absolute Auto 4.4 K/mm3 (1.3-6.7); Neutrophils Percent Auto 55.2 % (45.5-73.1); Platelet Count Result 299 k/mm3 (150-375); Red Blood Count 4.85 M/mm3 (4.6-6.20); Red Cell Distribution Width 12.2 % (11.5-14.5)
[2020-08-18 12:41] LABS: Anion Gap 8 mmol/L (8-16); Blood Urea Nitrogen 26 mg/dL (9-20); Calcium 9.3 mg/dL (8.4-10.2); Carbon Dioxide 27 mmol/L (22-30); Chloride 99 mmol/L (98-107); Estimated Glomerular Filt Rate 60; Glucose 206 mg/dL (75-110); Potassium 4.7 mmol/L (3.4-5.0); Sodium 134 mmol/L (137-145)
== END 2020-08-18 11:46 | disposition home or self-care (01) ==
PROVIDERS: PCP Family Medicine; Visit Provider Physician Assistant Medical
DX: N28.9 Disorder of kidney and ureter, unspecified (principal); D64.9 Anemia, unspecified
CPT/HCPCS: 36415; 80048; 85025

== ENCOUNTER 2020-10-19 11:04 | Outpatient (CLI) | payer MEDICARE, SELFPAY ==
[2020-10-19 15:50] LABS: Hemoglobin A1C 7.4 % (<5.7)
== END 2020-10-19 11:05 | disposition home or self-care (01) ==
LOC: ANHLAB 11:06
PROVIDERS: PCP Family Medicine; Visit Provider Physician Assistant Medical
DX: E11.9 Type 2 diabetes mellitus without complications (principal); E87.1 Hypo-osmolality and hyponatremia
CPT/HCPCS: 36415; 83036

== ENCOUNTER 2021-01-03 11:01 | Outpatient (CLI) | payer MEDICARE, SELFPAY ==
[2021-01-03 11:55] LABS: Cholesterol 211 mg/dL (0-200); HDL Direct 40 mg/dL; Triglycerides 112 mg/dL (<150)
[2021-01-03 12:06] LABS: LDL Cholesterol Direct 140 mg/dL
[2021-01-03 12:26] LABS: Prostate Specific Antigen 1.4 ng/mL (< OR = 4.0)
== END 2021-01-03 11:02 | disposition home or self-care (01) ==
LOC: ANHLAB 11:02
PROVIDERS: PCP Family Medicine; Visit Provider Physician Assistant Medical
DX: Z12.5 Encounter for screening for malignant neoplasm of prostate (principal); I10 Essential (primary) hypertension; Z13.220 Encounter for screening for lipoid disorders
CPT/HCPCS: 36415; 80061; 84153; 84443; G0103

== ENCOUNTER 2021-08-11 11:42 | Outpatient (CLI) | payer MEDICARE, SELFPAY ==
[2021-08-11 12:48] LABS: Hemoglobin A1C 8.1 % (<5.7)
== END 2021-08-11 11:43 | disposition home or self-care (01) ==
LOC: ANHLAB 11:44
PROVIDERS: PCP Family Medicine; Visit Provider Physician Assistant Medical
DX: E11.9 Type 2 diabetes mellitus without complications (principal)
CPT/HCPCS: 36415; 83036

== ENCOUNTER 2022-05-17 09:31 | Outpatient (CLI) | payer MEDICARE, SELFPAY ==
[2022-05-17 10:15] LABS: Alanine Aminotransferase 48 U/L (6-50); Albumin Level 4.7 g/dL (3.5-5.1); Alkaline Phosphatase 88 U/L (38-126); Anion Gap 5 mmol/L (8-16); Aspartate Amino Transferase 36 U/L (17-59); Bilirubin,Total 0.5 mg/dL (0.2-1.3); Blood Urea Nitrogen 22 mg/dL (9-20); Calcium 9.4 mg/dL (8.4-10.2); Carbon Dioxide 29 mmol/L (22-30); Chloride 102 mmol/L (98-107); Cholesterol 136 mg/dL (0-200); Estimated Glomerular Filt Rate > 60; Glucose 242 mg/dL (65-110); HDL Direct 38 mg/dL; Potassium 5.2 mmol/L (3.4-5.0); Sodium 136 mmol/L (137-145); Triglycerides 97 mg/dL (<150)
[2022-05-17 10:17] LABS: LDL Cholesterol Direct 62 mg/dL
[2022-05-17 10:55] LABS: Creatinine Urine 92.8 mg/dL
[2022-05-17 10:58] LABS: MALB Creatinine Ratio 79.4 mg/g (0-30); Microalbumin Urine Random 73.7 mg/L (0-16.7)
[2022-05-17 13:51] LABS: Hemoglobin A1C 10.3 % (<5.7)
[2022-05-17 14:07] LABS: Prostate Specific Antigen 0.9 ng/mL (< OR = 4.0)
== END 2022-05-17 09:32 | disposition home or self-care (01) ==
LOC: ANHLAB 09:33
PROVIDERS: PCP Family Medicine; Visit Provider Physician Assistant Medical
DX: Z12.5 Encounter for screening for malignant neoplasm of prostate (principal); E78.5 Hyperlipidemia, unspecified; E11.9 Type 2 diabetes mellitus without complications
CPT/HCPCS: 36415; 80053; 80061; 82043; 83036; 84153; G0103

== ENCOUNTER 2022-06-19 14:52 | Outpatient (CLI) | payer MEDICARE, SELFPAY ==
[2022-06-19 15:30] LABS: Anion Gap 8 mmol/L (8-16); Blood Urea Nitrogen 19 mg/dL (9-20); Carbon Dioxide 29 mmol/L (22-30); Chloride 102 mmol/L (98-107); Estimated Glomerular Filt Rate 60; Glucose 176 mg/dL (65-110); Sodium 139 mmol/L (137-145)
== END 2022-06-19 14:53 | disposition home or self-care (01) ==
LOC: ANHLAB 14:54
PROVIDERS: PCP Family Medicine; Visit Provider Physician Assistant Medical
DX: E87.5 Hyperkalemia (principal)
CPT/HCPCS: 36415; 80048

== ENCOUNTER 2023-07-20 09:59 | Outpatient (CLI) | payer MEDICARE, SELFPAY ==
[2023-07-20 10:43] LABS: Basophils Absolute Auto 0.1 K/mm3 (0.0-0.1); Basophils Percent Auto 1.3 % (0.2-1.2); Eosinophils Absolute Auto 0.3 K/mm3 (0-0.3); Eosinophils Percent Auto 4.4 % (0-4.4); Hematocrit 38.6 % (42.0-52.0); Hemoglobin 12.8 g/dL (14.0-18.0); Immature Granulocyte Absolute 0.02 K/mm3 (0.00-0.031); Immature Granulocyte Percent A 0.3 % (0-0.5); Lymphocytes Absolute Auto 1.74 K/mm3 (0.9-3.2); Lymphocytes Percent Auto 27.3 % (18.3-44.2); Mean Corpuscular HGB Conc 33.2 g/dl (32-36); Mean Corpuscular Hemoglobin 29.9 pg (26-34); Mean Corpuscular Volume 90.2 fl (80-100); Monocytes Absolute Auto 0.6 K/mm3 (0.1-0.6); Monocytes Percent Auto 8.9 % (2.6-8.5); Neutrophils Absolute Auto 3.7 K/mm3 (1.3-6.7); Neutrophils Percent Auto 57.8 % (45.5-73.1); Platelet Count Result 208 k/mm3 (150-375); Red Blood Count 4.28 M/mm3 (4.6-6.20); Red Cell Distribution Width 12.3 % (11.5-14.5); White Blood Count 6.4 K/mm3 (4.5-10.0)
[2023-07-20 10:58] LABS: Creatinine Urine 256.2 mg/dL
[2023-07-20 10:58] LABS: Alanine Aminotransferase 37 U/L (6-50); Albumin Level 4.1 g/dL (3.5-5.1); Alkaline Phosphatase 69 U/L (38-126); Anion Gap 7 mmol/L (8-16); Aspartate Amino Transferase 34 U/L (17-59); Bilirubin,Total 0.7 mg/dL (0.2-1.3); Blood Urea Nitrogen 17 mg/dL (9-20); Calcium 8.9 mg/dL (8.4-10.2); Carbon Dioxide 27 mmol/L (22-30); Chloride 104 mmol/L (98-107); Estimated Glomerular Filt Rate > 60; Glucose 151 mg/dL (65-110); Potassium 4.4 mmol/L (3.4-5.0); Sodium 138 mmol/L (137-145)
[2023-07-20 11:04] LABS: MALB Creatinine Ratio 30.2 mg/g (0-30); Microalbumin Urine Random 77.3 mg/L (0-16.7)
[2023-07-20 12:00] LABS: Hemoglobin A1C 7.2 % (<5.7)
== END 2023-07-20 10:00 | disposition home or self-care (01) ==
PROVIDERS: PCP Family Medicine; Visit Provider Physician Assistant Medical
DX: E78.5 Hyperlipidemia, unspecified (principal); Z12.5 Encounter for screening for malignant neoplasm of prostate; I51.89 Other ill-defined heart diseases; E87.5 Hyperkalemia; E11.9 Type 2 diabetes mellitus without complications
CPT/HCPCS: 36415; 80053; 82043; 83036; 84153; 84443; 85025; G0103

== ENCOUNTER 2023-07-25 11:50 | Outpatient (CLI) | payer MEDICARE, SELFPAY ==
[2023-07-25 13:38] LABS: Iron 64 ug/dL (49-181)
[2023-07-25 16:13] LABS: Percent Iron Saturation 18 % (20-50)
== END 2023-07-25 11:51 | disposition home or self-care (01) ==
PROVIDERS: PCP Family Medicine; Visit Provider Physician Assistant Medical
DX: D64.9 Anemia, unspecified (principal)
CPT/HCPCS: 36415; 83540; 83550

== ENCOUNTER 2023-10-15 02:46 | Day surgery (SDC) | payer MEDICARE, SELFPAY ==
[2023-08-22 15:05] VITALS: BMI 27.5
--- NOTE | 2023-10-12 13:21 | SUR.PREOP ---
Patient called regarding upcoming procedure. Reviewed preop instructions, appointment times, and procedure prep.
--- NOTE | 2023-10-12 13:23 | SUR.PREOP ---
Patient called regarding upcoming procedure. Reviewed preop instructions, appointment times, and procedure prep.
[2023-10-15 12:18] VITALS: BP 151/73; PULSE 72; RESP 18; TEMP 35.9; O2SAT 100
--- NOTE | 2023-10-15 12:36 | WPDANESEPPF ---
Anes - Initial Pre Proc Eval Procedure: Operation Date: 10/15/23 13:30 Proposed Procedures p Screening Colonoscopy - Kenny Weathers MD Date/Time: 10/15/23 12:36 Surgeon: Kenny Weathers MD Pre Op Diagnosis: neoplasm screening Patient Data Age: 73 Gender: M Height: 1.91 m Weight: 97.3 kg Last Vital Signs Temp 96.7 F L 10/15/23 12:18 Pulse 72 10/15/23 12:18 Resp 18 10/15/23 12:18 BP 151/73 H 10/15/23 12:18 Pulse Ox 100 10/15/23 12:18 O2 Del Method Room Air 10/15/23 12:18 Allergies Allergy/AdvReac Type Severity Reaction Status Date / Time hydrochlorothiazide AdvReac hyponatremi Verified 10/15/23 12:17 a nebivolol [From Bystolic] AdvReac dizziness Verified 10/15/23 12:17 and lightheaded Home Medications Medication Instructions Recorded Confirmed Type blood-glucose meter (Accu-Chek #1 ea 11/23/20 10/15/23 Rx Arlen Plus Meter) lancets (Accu-Chek Softclix #100 ea 11/23/20 10/15/23 Rx Lancets) blood sugar diagnostic (Accu-Chek #100 ea 01/31/23 10/15/23 Rx Arlen Plus test strips) rosuvastatin 40 mg tablet (Crestor) 40 mg PO DAILY #90 tabs 02/22/23 10/15/23 Rx metformin 500 mg tablet,extended 2,000 mg PO QPM #360 tabs 06/26/23 10/15/23 Rx release 24 hr amlodipine 10 mg tablet 10 mg PO DAILY #90 tabs 07/03/23 10/15/23 Rx mupirocin 2 % topical ointment 1 applic topical BID #15 grams 07/16/23 10/15/23 Rx ramipril 10 mg capsule 20 mg PO DAILY #180 caps 07/16/23 10/15/23 Rx donepezil 10 mg tablet 10 mg PO DAILY #90 tabs 07/27/23 10/15/23 Rx omeprazole 40 mg capsule,delayed 40 mg PO DAILY #90 caps 08/04/23 10/15/23 Rx release sertraline 25 mg tablet (Zoloft) 25 mg PO DAILY #30 tabs 08/07/23 10/15/23 Rx metoprolol succinate 50 mg 50 mg PO DAILY #90 tabs 08/24/23 10/15/23 Rx tablet,extended release 24 hr ferrous sulfate 325 mg (65 mg 325 mg PO BID #60 tabs 08/29/23 10/15/23 Rx iron) tablet memantine 10 mg tablet (Namenda) 10 mg PO BID #60 tabs 09/12/23 10/15/23 Rx Patient hx anesthesia problems: none Family hx anesthesia problems: none Results Review: All pre-operative results and documents have been reviewed as part of the pre-operative evaluation. [facility] Past Medical History Medical History Adult BMI 31.0-31.9 kg/sq m Anemia, unspecified BMI 28.0-28.9,adult BMI 29.0-29.9,adult BMI greater than 30 Body mass index (BMI) of 30.0 to 30.9 in adult Diabetes Essential (primary) hypertension Kidney function abnormal REY (obstructive sleep apnea) Surgical History Surgical History H/O colonoscopy Family History Family History Sibling Hypertension Diabetes mellitus Father Heart disease Hypertension Mother Dementia Heart disease Sibling Heart disease Diabetes mellitus Cancer Social History Social History Smoking packs per day: 1 Smoking cigarettes per day: 20.0 Years smoked: 25 Smoking pack-years: 25.00 Smoking status: Former smoker Tobacco type: cigarettes Second hand tobacco smoke exposure: No Additional smoking assessment comments: pt very poor historian Alcohol intake: current Substance use: never Substance use type: does not use Lack of Transportation: No Lack of Food: Never True Current Housing: I Have Housing Concerned About Future Housing: No Difficulty Paying Gas/Electric Bills: No Difficulty Paying for Meds: No Currently Unemployed: Decline to Answer Education: High School Diploma/GED Difficulty w/ Childcare or Family Care: No Living arrangements: with family 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
[2023-10-15] MEDS: LACTATED RINGERS 1,000 ML 150 ML IV CONT (12:41)
[2023-10-15 12:44] LABS: Glucose Point of Care 151 mg/dl (65-105)
--- NOTE | 2023-10-15 12:45 | PM.HPGS ---
History of Present Illness History of Present Illness Consent: Risks, benefits, and alternatives have been discussed and questions answered. Patient agrees to proceed with procedure. Chief complaint: neoplasm screening Narrative: Alejandro Love is a 73 year old male here for screening colonoscopy Review of Systems Constitutional: Constitutional: Denies headache(s) and Denies weakness Eyes: Eyes: Denies blurry vision ENT: Reports Normal hearing present, Denies headache(s) and Denies neck pain Cardiovascular: Cardiovascular: Denies chest pain and Denies dyspnea Respiratory: Respiratory: Denies dyspnea Gastrointestinal: Gastrointestinal: Reports no additional gastrointestinal complaints Genitourinary: Genitourinary: Denies dysuria Musculoskeletal: Musculoskeletal: Denies neck pain Integumentary/Breasts: Skin/Breast: Denies dry skin Neurologic: Reports Normal hearing present, Denies headache(s) and Denies weakness Psychiatric: Psychiatric: Denies anxiety Endocrine: Endocrine: Denies change in body appearance Hematologic/Lymphatic: Hematologic/Lymphatic: Denies easy bleeding Allergic/Immunologic: Allergic/Immunologic: Denies urticaria PMF Past Medical History Medical History Adult BMI 31.0-31.9 kg/sq m Anemia, unspecified BMI 28.0-28.9,adult BMI 29.0-29.9,adult BMI greater than 30 Body mass index (BMI) of 30.0 to 30.9 in adult Diabetes Essential (primary) hypertension Kidney function abnormal REY (obstructive sleep apnea) Surgical History Surgical History H/O colonoscopy Family History Family History Sibling Hypertension Diabetes mellitus Father Heart disease Hypertension Mother Dementia Heart disease Sibling Heart disease Diabetes mellitus Cancer Social History Social History Smoking packs per day: 1 Smoking cigarettes per day: 20.0 Years smoked: 25 Smoking pack-years: 25.00 Smoking status: Former smoker Tobacco type: cigarettes Second hand tobacco smoke exposure: No Additional smoking assessment comments: pt very poor historian Alcohol intake: current Substance use: never Substance use type: does not use Lack of Transportation: No Lack of Food: Never True Current Housing: I Have Housing Concerned About Future Housing: No Difficulty Paying Gas/Electric Bills: No Difficulty Paying for Meds: No Currently Unemployed: Decline to Answer Education: High School Diploma/GED Difficulty w/ Childcare or Family Care: No Living arrangements: with family 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/Education: 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 Gender identity (if verbalized by the patient): Male Spiritual care concerns: No Meds Home Medications and Allergies Home Medications Medication Instructions Recorded Confirmed Type blood-glucose meter (Accu-Chek #1 ea 11/23/20 10/15/23 Rx Arlen Plus Meter) lancets (Accu-Chek Softclix #100 ea 11/23/20 10/15/23 Rx Lancets) blood sugar diagnostic (Accu-Chek #100 ea 01/31/23 10/15/23 Rx Arlen Plus test strips) rosuvastatin 40 mg tablet (Crestor) 40 mg PO DAILY #90 tabs 02/22/23 10/15/23 Rx metformin 500 mg tablet,extended 2,000 mg PO QPM #360 tabs 06/26/23 10/15/23 Rx release 24 hr amlodipine 10 mg tablet 10 mg PO DAILY #90 tabs 07/03/23 10/15/23 Rx mupirocin 2 % topical ointment 1 applic topical BID #15 grams 07/16/23 10/15/23 Rx ramipril 10 mg capsule 20 mg PO DAILY #180 caps 07/16/23 10/15/23 Rx donepezil 10 mg tablet 10 mg PO DAILY #90 tabs 07/27/23 10/15/23 Rx omeprazole 40 mg capsule,delayed 40 mg PO DAILY #90 caps 08/04/23 10/15/23 Rx release sertraline 25 mg tablet (Zoloft) 25 mg PO DAILY #30 tabs 08/07/23 10/15/23 Rx metoprolol s
[2023-10-15 13:11] VITALS: BP 125/77; PULSE 103; RESP 20; O2SAT 97
[2023-10-15 13:21] VITALS: BP 141/81; PULSE 89; RESP 19; O2SAT 98
[2023-10-15 13:31] VITALS: BP 161/84; PULSE 86; RESP 15; O2SAT 99
== END 2023-10-15 13:46 | disposition home or self-care (01) ==
PROVIDERS: PCP Family Medicine; Visit Provider Internal Medicine Gastroenterology
PROC: 0DJD8ZZ Inspection of Lower Intestinal Tract, Via Natural or Artificial Opening Endoscopic (ICD-10-PCS; CPT 45378; principal; 2023-10-15 13:30)
DX: Z12.31 Encounter for screening mammogram for malignant neoplasm of breast (principal); K57.30 Diverticulosis of large intestine without perforation or abscess without bleeding; K64.8 Other hemorrhoids; K51.40 Inflammatory polyps of colon without complications; K52.9 Noninfective gastroenteritis and colitis, unspecified; I10 Essential (primary) hypertension; D64.9 Anemia, unspecified; E11.9 Type 2 diabetes mellitus without complications; G47.33 Obstructive sleep apnea (adult) (pediatric); Z79.84 Long term (current) use of oral hypoglycemic drugs; Z87.891 Personal history of nicotine dependence; Z82.49 Family history of ischemic heart disease and other diseases of the circulatory system; Z80.9 Family history of malignant neoplasm, unspecified
CPT/HCPCS: 45385; 82948; 88305; J2371; J2704; J7120

== ENCOUNTER 2024-03-18 11:38 | Outpatient (CLI) | payer MEDICARE, SELFPAY ==
--- NOTE | ~2024-03-18 | XR_ITS ---
EXAMINATION: [id number] Exam Date/Time: 03/18/2024 12:05 CDT HISTORY: R07.81 - Pleurodynia Comparison: 08/26/2011; x-ray chest 08/10/2011. RESULT: Lines, tubes, and devices: None. Lungs and pleura: Senescent changes, otherwise clear. Cardiomediastinal silhouette: Stable. Other: No acute osseous or upper abdominal finding. Mild scoliosis. Degenerative changes in the spin e and bilateral shoulders. IMPRESSION: No acute cardiopulmonary process. No acute osseous finding in the bilateral ribs. Reviewed, dictated and finalized at location K. IMPRESSION: No acute cardiopulmonary process. No acute osseous finding in the bilateral rib s.
== END 2024-03-18 11:39 | disposition home or self-care (01) ==
LOC: ANHIMG 11:41
PROVIDERS: PCP Family Medicine; Visit Provider Nurse Practitioner Family
DX: R07.81 Pleurodynia (principal)
CPT/HCPCS: 71111

== ENCOUNTER 2024-09-09 07:08 | Outpatient (CLI) | payer MEDICARE, SELFPAY ==
[2024-09-09 07:47] LABS: Basophils Absolute Auto 0.1 K/mm3 (0.0-0.1); Basophils Percent Auto 1.6 % (0.2-1.2); Eosinophils Absolute Auto 0.3 K/mm3 (0-0.3); Eosinophils Percent Auto 4.5 % (0-4.4); Hematocrit 41.8 % (42.0-52.0); Hemoglobin 13.4 g/dL (14.0-18.0); Immature Granulocyte Absolute 0.01 K/mm3 (0.00-0.031); Immature Granulocyte Percent A 0.1 % (0-0.5); Lymphocytes Absolute Auto 1.74 K/mm3 (0.9-3.2); Lymphocytes Percent Auto 25.4 % (18.3-44.2); Mean Corpuscular HGB Conc 32.1 g/dl (32-36); Mean Corpuscular Hemoglobin 29.6 pg (26-34); Mean Corpuscular Volume 92.3 fl (80-100); Mean Platelet Volume 11.2 fl (7.4-10.4); Monocytes Absolute Auto 0.7 K/mm3 (0.1-0.6); Monocytes Percent Auto 9.6 % (2.6-8.5); Neutrophils Percent Auto 58.8 % (45.5-73.1); Platelet Count Result 222 k/mm3 (150-375); Red Blood Count 4.53 M/mm3 (4.6-6.20); Red Cell Distribution Width 12.5 % (11.5-14.5); White Blood Count 6.8 K/mm3 (4.5-10.0)
[2024-09-09 08:03] LABS: Alanine Aminotransferase 28 U/L (6-50); Albumin Level 4.3 g/dL (3.5-5.1); Alkaline Phosphatase 89 U/L (38-126); Anion Gap 10 mmol/L (4-12); Aspartate Amino Transferase 31 U/L (17-59); Bilirubin,Total 0.6 mg/dL (0.2-1.3); Blood Urea Nitrogen 14 mg/dL (9-20); Calcium 9.6 mg/dL (8.4-10.2); Carbon Dioxide 27 mmol/L (22-30); Chloride 103 mmol/L (98-107); Cholesterol 114 mg/dL (0-200); Estimated Glomerular Filt Rate > 60; Glucose 154 mg/dL (65-110); HDL Direct 45 mg/dL; Potassium 4.5 mmol/L (3.4-5.0); Sodium 140 mmol/L (137-145); Triglycerides 89 mg/dL (<150)
[2024-09-09 08:14] LABS: LDL Cholesterol Direct 44 mg/dL
[2024-09-09 08:16] LABS: Hemoglobin A1C 7.2 % (<5.7)
[2024-09-09 08:27] LABS: Iron 61 ug/dL (49-181)
[2024-09-09 08:33] LABS: Prostate Specific Antigen 0.9 ng/mL (< OR = 4.0)
[2024-09-09 08:36] LABS: Percent Iron Saturation 19 % (20-50)
== END 2024-09-09 07:09 | disposition home or self-care (01) ==
PROVIDERS: PCP Family Medicine; Visit Provider Physician Assistant Medical
DX: D50.9 Iron deficiency anemia, unspecified (principal); E87.5 Hyperkalemia; E78.5 Hyperlipidemia, unspecified; E11.9 Type 2 diabetes mellitus without complications; Z12.5 Encounter for screening for malignant neoplasm of prostate
CPT/HCPCS: 36415; 80053; 80061; 83036; 83540; 83550; 84153; 85025; G0103

== ENCOUNTER 2024-09-11 09:22 | Outpatient (CLI) | payer MEDICARE, SELFPAY ==
--- NOTE | ~2024-09-11 | XR_ITS ---
AP and oblique views of the right ribs, and PA and lateral chest radiographs Clinical History: Pain Findings: No rib fracture is seen. Osseous alignment is anatomic. Lungs are clear, without focal cons olidation or pleural effusion. Cardiomediastinal contour is within normal limits. Soft tissues are un remarkable. Impression: No rib fracture is seen. Clear lungs. Reviewed, dictated and finalized at location . 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 Clear lungs.
== END 2024-09-11 09:23 | disposition home or self-care (01) ==
PROVIDERS: PCP Family Medicine; Visit Provider Physician Assistant Medical
DX: R07.81 Pleurodynia (principal)
CPT/HCPCS: 71046; 71100

== ENCOUNTER 2025-07-28 14:02 | Outpatient (CLI) | payer MEDICARE, SELFPAY ==
--- NOTE | 2025-07-28 14:16 | ECHO_ITS ---
Patient Info Name: Alejandro Love Age: 75 years : 1950 Gender: Male Ht: 75 in Wt: 224 lbs BSA: 2.33 m2 HR: 78 bpm BP: 149 / 88 mmHg Heart Rhythm: Atrial Fibrillation Technical Quality: Good Exam Date: 07/28/2025 2:32 PM Patient Status: O Admit Date: 07/28/2025 Exam Type: CA echo doppler color flow Complete two-dimensional, color flow and Doppler transthoracic echocardiogram is performed. Trampoline Team Coach: Divya Sue Attending Provider: Mandi Cárdenas Summary 1. Complete two-dimensional, color flow and Doppler transthoracic echocardiogram is performed. 2. Left ventricular chamber dimension is normal. 3. Left ventricular systolic function is normal, estimated at 65-70. 4. The left ventricular diastolic function is abnormal. 5. E/e' 15 is elevated. 6. Left atrial chamber dimension is mildly enlarged. 7. There is moderate aortic valve sclerosis. 8. There is mild aortic valve stenosis with a peak velocity of 170 cm/s, mean gradient of 5 mmHg, and aortic valve area of 1.7 cm2. 9. The mitral valve has a mildly calcified annulus. 10. There is mild mitral valve regurgitation. 11. There is trace tricuspid valve regurgitation. 12. No pulmonary hypertension, estimated pulmonary arterial systolic pressure is 27 mmHg. 13. There is trace pulmonic regurgitation. Left Ventricle E/e' 15 is elevated. Left ventricular chamber dimension is normal. Left ventricular systolic function is normal, estimated at 65-70. The left ventricular diastolic function is abnormal. Right Ventricle Right ventricular chamber dimension is normal. Right ventricular systolic function is normal. Left Atria Left atrial chamber dimension is mildly enlarged. Right Atria Right atrial chamber dimension is normal. Aortic Valve The aortic valve is trileaflet. There is moderate aortic valve sclerosis. There is mild aortic valve stenosis with a peak velocity of 170 cm/s, mean gradient of 5 mmHg, and aortic valve area of 1.7 cm2. There is no aortic valve regurgitation. Pulmonic Valve There is trace pulmonic regurgitation. Mitral Valve The mitral valve has a mildly calcified annulus. There is no mitral valve stenosis. There is mild mitral valve regurgitation. Tricuspid Valve There is trace tricuspid valve regurgitation. No pulmonary hypertension, estimated pulmonary arterial systolic pressure is 27 mmHg. Pericardium/Pleural There is no pericardial effusion. Inferior Vena Cava Normal inferior vena cava with >50% collapse upon inspiration consistent with normal right atrial pressure, 5 mmHg. Aorta The aortic root size at the sinus of Valsalva is normal. Left Ventricular Outflow Tract Name Value Normal LVOT 2D LVOT Diameter 2.0 cm LVOT Doppler LVOT Peak Velocity 102 cm/s LVOT Peak Gradient 4 mmHg LVOT Mean Gradient 2 mmHg LVOT VTI 20 cm LVOT VTI/AV VTI Ratio 0.5 LVOT Stroke Volume 64 ml LVOT CO 2.9 l/min LVOT CI 1.2 l/min/m2 Pulmonic Valve Name Value Normal RVOT Doppler RVOT Peak Velocity 72 cm/s RVOT Peak Gradient 2 mmHg PV Doppler PV Peak Velocity 100 cm/s PV Peak Gradient 3 mmHg Mitral Valve Name Value Normal MV Diastolic Function MV E Peak Velocity 125 cm/s MV A Peak Velocity 2 cm/s MV E/A 77.3 MV Decel Time (PW) 160 ms MV Annular TDI MV E/e' (Septal) 13.9 MV E/e' (Lateral) 18.1 MV E/e' (Average) 16.0 Tricuspid Valve Name Value Normal TV Regurgitation Doppler TR Peak Velocity 234 cm/s TR Peak Gradient 17 mmHg Estimated PAP/RSVP RA Pressure 5 mmHg <=5 PA Systolic Pressure 27 mmHg <36 RV Systolic Pressure 27 mmHg <36 Aorta Name Value Normal Ascending Aorta Ao Root Diameter (MM) 3.4 cm Ao Root Diam Index (MM) 1.5 cm/m2 Aortic Valve Name Value Normal AV Doppler AV Peak Velocity 170 cm/s AV Peak Gradient 9 mmHg AV Mean Gradient 5 mmHg AV VTI 38 cm AV Area (Cont Eq VTI) 1.7 cm2 >=3.0 AV Area (Cont Eq Mario) 1.9 cm2 AV DI (Mario) 0.60 AV Regurgitation 2D LVOT Area 3.1 cm2 Ventricles Name Value Normal LV Dimensions 2D/MM IVS Diastolic Thickness (2D) 0.9 cm 0.6-1.0 LVID Diastole (2D) 4.9 cm 4.2-5.8 LVIW Diastolic Thickness (2D) 0.9 cm 0.6-1.0 LVID Systole (2D) 3.1 cm 2.5-4.0 LVOT Diameter 2.0 cm LV Mass (2D Cubed) 156.51 g 88.00-224.00 LV Mass Index (2D Cubed) 67 g/m2 49-115 Relative Wall Thickness (2D) 0.37 <=0.42 LV Fractional Shortening/Ejection Fraction 2D/MM LV Fractional Shortening (2D) 36 % 25-43 LV EF (2D Teichholz) 66 % LV Diastolic Volume (4C MOD) 67 ml LV EF (4C MOD) 68 % LV Diastolic Volume (2C MOD) 76 ml LV EF (2C MOD) 73 % LV Diastolic Volume (BP MOD) 72 ml 62-150 LV Diastolic Volume Index (BP MOD) 31 ml/m2 34-74 LV Systolic Volume (BP MOD) 21 ml 21-61 LV Systolic Volume Index (BP MOD) 9 ml/m2 11-31 LV EF (BP MOD) 71 % 52-72 LV Diastolic Length (4C) 7.2 cm LV Systolic Length (4C) 6.0 cm LV Stroke Volume (4C MOD) 46 ml Atria Name Value Normal LA Dimensions LA Dimension (MM) 5.5 cm 3.0-4.0 LA Volume (4C A-L) 82 ml LA Volume (BP A-L) 85 ml RA Dimensions RA Area (4C) 14.9 cm2 <=18.0 Report Signatures
== END 2025-07-28 14:03 | disposition home or self-care (01) ==
LOC: ANHCARD 14:06
PROVIDERS: PCP Family Medicine; Visit Provider Nurse Practitioner Family
DX: R93.1 Abnormal findings on diagnostic imaging of heart and coronary circulation (principal); G47.33 Obstructive sleep apnea (adult) (pediatric); I35.8 Other nonrheumatic aortic valve disorders
CPT/HCPCS: 93306